=== PATIENT | female | born 1960 | race Caucasian/White ===

== ENCOUNTER → 2016-05-21 | Outpatient (CLI) | payer BC ==
--- NOTE | 2016-05-21 15:47 | US ---
EXAMINATION TYPE: US venous doppler duplex LE LT DATE OF EXAM: 05/21/2016 3:39 PM COMPARISON: No previous CLINICAL HISTORY: Left leg pain and swelling following fall 2 weeks ago. SIDE PERFORMED: Left VESSELS IMAGED: External Iliac Vein (EIV) Common Femoral Vein Deep Femoral Vein Greater Saphenous Vein * Femoral Vein Popliteal Vein Proximal Calf Veins (* superficial vessels) TECHNOLOGIST IMPRESSION: Left Leg: Negative for DVT Satisfactory color flow, phasicity, and compressibility is seen at the above levels in the left lower extremity. IMPRESSION: No ultrasound evidence for acute DVT in the left lower extremity.
== END | disposition home or self-care (01) ==
LOC: RADUSWWP 15:16
PROVIDERS: ATTEND Orthopaedic Surgery
DX: S76.812A Strain of other specified muscles, fascia and tendons at thigh level, left thigh, initial encounter (principal); S76.312D Strain of muscle, fascia and tendon of the posterior muscle group at thigh level, left thigh, subsequent encounter; M79.652 Pain in left thigh

== ENCOUNTER → 2016-08-06 | Outpatient (CLI) | payer BC ==
--- NOTE | 2016-08-06 09:38 | US ---
EXAMINATION TYPE: US venous doppler duplex LE LT DATE OF EXAM: 08/06/2016 9:26 AM COMPARISON: prior llev in pacs--negative CLINICAL HISTORY: LLE Calf Pain,M79.652,S76.312D,I26.99,I80.9. persisting left leg pain, no previous dvt SIDE PERFORMED: left VESSELS IMAGED: External Iliac Vein (EIV) Common Femoral Vein Deep Femoral Vein Greater Saphenous Vein * Femoral Vein Popliteal Vein Small Saphenous Vein * Proximal Calf Veins (* superficial vessels) Left Leg: Negative for DVT Results called to Kathryn in the office at the time of the exam. IMPRESSION: 1. No diagnostic evidence of DVT as visualized.
== END | disposition home or self-care (01) ==
LOC: RADUSWWP 09:07
PROVIDERS: ATTEND Orthopaedic Surgery
DX: I80.9 Phlebitis and thrombophlebitis of unspecified site (principal); I26.99 Other pulmonary embolism without acute cor pulmonale; S76.312D Strain of muscle, fascia and tendon of the posterior muscle group at thigh level, left thigh, subsequent encounter

== ENCOUNTER 2017-04-20 21:52 | Observation (INO) | payer BC ==
[2017-04-20] MEDS ORDERED: NITROGLYCERIN SL TABS 0.4 MG TAB SUBLINGUAL STA (22:08)
[2017-04-20] MEDS ORDERED: ASPIRIN 81 MG PO STA (22:08)
--- NOTE | 2017-04-20 22:13 | ED ---
Chest Pain HPI - General Chief Complaint: Chest Pain Stated Complaint: Chest Pain Time Seen by Provider: 04/20/17 22:01 Source: patient, RN notes reviewed Mode of arrival: wheelchair Limitations: no limitations - History of Present Illness Initial Comments: This is a 56-year-old female with a history of asthma and high triglycerides a former smoker who quit in 1995 who complains the onset last night of somewhat shoulder pain awoke her from sleep. Sharp in pressure-like in nature. She states today she's had intermittent left-sided chest pains as severe as 8/10 currently 1/10 in severity. No fevers chills nausea times sweats cough or other symptoms. Additionally she states she does have a vitamin D deficiency for which she is being treated. No known cardiac disease no known history of early heart disease and her family. MD Complaint: chest pain, other - Related Data Home Medications Medication Instructions Recorded Confirmed Venlafaxine HCl ER [Effexor Xr] 150 mg PO DAILY 08/09/15 04/20/17 Ergocalciferol (Vitamin D2) 50,000 unit PO Q7D 04/20/17 04/20/17 [Vitamin D2] Allergies Allergy/AdvReac Type Severity Reaction Status Date / Time adhesive tape Allergy Rash/Hives Verified 04/20/17 22:00 Milk Containing Products Allergy Anaphylaxis Verified 04/20/17 22:00 [Dairy] Iodine and Iodide Containing AdvReac Rash/Hives Verified 04/20/17 22:00 Produc Review of Systems ROS Statement: Those systems with pertinent positive or pertinent negative responses have been documented in the HPI. ROS Other: All systems not noted in ROS Statement are negative. EKG Findings - EKG Results: EKG: interpreted by YOBANI NDIAYE (Normal sinus rhythm rate of 89. Interval 166 QRS duration 80 QT since QTC of 380/[address]-T wave changes are seen.), sinus rhythm, normal axis, normal QRS, normal ST/T, no acute changes Past Medical History Past Medical History: Asthma, Hyperlipidemia Additional Past Medical History / Comment(s): vertigo History of Any Multi-Drug Resistant Organisms: None Reported Past Surgical History: Breast Surgery, Section, Cholecystectomy, Hysterectomy, Orthopedic Surgery Additional Past Surgical History / Comment(s): Colonoscopy Past Anesthesia/Blood Transfusion Reactions: Motion Sickness, Postoperative Nausea & Vomiting (PONV) Additional Past Anesthesia/Blood Transfusion Reaction / Comment(s): States diff. to wake up Past Psychological History: No Psychological Hx Reported Smoking Status: Former smoker - Past Family History Mother Family Medical History: Cancer General Exam - General Exam Comments Initial Comments: This a well-developed well-nourished awake alert oriented 3 female Limitations: no limitations General appearance: alert, in no apparent distress Head exam: Present: atraumatic, normocephalic, normal inspection Eye exam: Present: normal appearance, PERRL, EOMI. Absent: scleral icterus, conjunctival injection, periorbital swelling ENT exam: Present: normal exam, mucous membranes moist Neck exam: Present: normal inspection. Absent: tenderness, meningismus, lymphadenopathy Respiratory exam: Present: normal lung sounds bilaterally. Absent: respiratory distress, wheezes, rales, rhonchi, stridor, chest wall tenderness Cardiovascular Exam: Present: regular rate, normal rhythm, normal heart sounds. Absent: systolic murmur, diastolic murmur, rubs, gallop, clicks GI/Abdominal exam: Present: soft, normal bowel sounds, other (Obese abdomen). Absent: distended, tenderness, guarding, rebound, rigid, bruit, pulsatile mass, hernia Rectal exam: Present: deferred Extremities exam: Present: normal inspection, full ROM, normal capillary refill. Absent: tenderness, pedal edema, joint swelling, calf tenderness Back exam: Present: normal inspection Neurological exam: Present: alert, oriented X3, CN II-XII intact Psychiatric exam: Present: normal affect, normal mood Skin exam: Present: warm, dry, intact, normal color. Absent: rash Course Vital Signs 04/20/17 04/20/17 21:56 22:40 Temperature 98.0 F Pulse Rate 90 85 Respiratory 20 18 Rate Blood Pressure 178/105 154/89 O2 Sat by Pulse 97 Oximetry - Reevaluation(s) Reevaluation #1: 04/20/17 23:13 Patient did get resolution of her chest pain after nitro it started 5/10 nitroglycerin that essentially disappeared. Chest Pain MDM - MDM I did discuss the findings with the patient and family members the findings are suspicious for angina patient will be admitted I did discuss case with Dr. Marvin x-rays are negative for acute findings patient will be admitted Critical Care Time Critical Care Time: Yes Critical Care Time: 31 minutes of critical care time which includes initial presentation with history physical labs x-rays several reevaluation of the patient discussed with the patient and family regarding findings discussed with the admitting physician initial orders and documentation of the above. Disposition Clinical Impression: Unstable angina pectoris Disposition: ADMITTED IP TO THIS [facility] Condition: Stable Referrals: Jonathan Antoine MD [Primary Care Provider] - 1-2 days
[2017-04-20 22:29] LABS: Basophils % (A) 1 %; CH 31.1; Eosinophils # (A) 0.2 k/uL (0-0.7); Eosinophils % (A) 3 %; HCT 42.9 % (34.0-46.0); HDW 2.46; HGB 14.1 gm/dL (11.4-16.0); Luc # (Auto) 0.11; Luc % (Auto) 2; Lymphocytes % (A) 35 %; MCH 31.1 pg (25.0-35.0); MCHC 32.8 g/dL (31.0-37.0); MCV 94.8 fL (80.0-100.0); Mean Platelet Volume 7.4; Monocytes # (A) 0.4 k/uL (0-1.0); Monocytes % (A) 7 %; Neutrophils # (A) 3.1 k/uL (1.3-7.7); Neutrophils % (A) 54 %; RBC 4.53 m/uL (3.80-5.40); RDW 14.5 % (11.5-15.5); WBC 5.9 k/uL (3.8-10.6); WBC (Perox) 6.32
[2017-04-20 22:46] LABS: ALT 34 U/L (9-52); AST 21 U/L (14-36); Alkaline Phosphatase 81 U/L (38-126); Amylase 73 U/L (30-110); Anion Gap 13 mmol/L; Blood Urea Nitrogen 17 mg/dL (7-17); Calcium 8.9 mg/dL (8.4-10.2); Carbon Dioxide 20 mmol/L (22-30); Chloride 110 mmol/L (98-107); Glucose 109 mg/dL (74-99); Magnesium 2.2 mg/dL (1.6-2.3); Non-African American GFR(MDRD) >60 (>60 ml/min/1.73 sqM); Potassium 4.2 mmol/L (3.5-5.1); Sodium 143 mmol/L (137-145); Total Bilirubin 0.5 mg/dL (0.2-1.3); Total Protein 7.2 g/dL (6.3-8.2)
[2017-04-20 22:56] LABS: Creatine Kinase 117 U/L (30-135)
--- NOTE | 2017-04-20 23:02 | XR ---
EXAMINATION TYPE: XR chest 2V DATE OF EXAM: 04/20/2017 COMPARISON: NONE HISTORY: Chest pain TECHNIQUE: Frontal and lateral views of the chest are obtained. FINDINGS: Heart and mediastinum are normal. Lungs are clear. Diaphragm is normal. Bony thorax is int act. IMPRESSION: Normal chest
[2017-04-20 23:10] LABS: Creatine Kinase MB 0.5 ng/mL (0.0-2.4); Troponin I <0.012 ng/mL (0.000-0.034)
[2017-04-20] MEDS ORDERED: NITROGLYCERIN SL TABS 0.4 MG TAB SUBLINGUAL PRN (23:15)
[2017-04-20] MEDS ORDERED: HEPARIN SOD,PORK IN 0.45% NACL 25,000 UNIT in 0.45% NACL 1 500ML.BAG IV SCH (23:15)
[2017-04-20] MEDS ORDERED: HEPARIN SODIUM,PORCINE 5,000 UNIT/ML 1 ML VIAL IV ONE (23:15)
[2017-04-20] MEDS ORDERED: SODIUM CHLORIDE 0.9% 1,000 ML IV SCH (23:15)
[2017-04-20 23:17] LABS: Prothrombin Time 9.8 sec (9.0-12.0)
[2017-04-21 00:29] VITALS: BMI 36.6
[2017-04-21] MEDS: NITROGLYCERIN OINT 1 INCH/GM PACKET TOPICAL SCH ×3 (00:57→14:53)
[2017-04-21 04:42] LABS: Cholesterol 176 mg/dL (<200); Creatine Kinase 83 U/L (30-135); HDL Cholesterol 43 mg/dL (40-60)
[2017-04-21 04:56] LABS: Creatine Kinase MB 0.5 ng/mL (0.0-2.4); Troponin I <0.012 ng/mL (0.000-0.034)
[2017-04-21 06:58] VITALS: RESP 16
[2017-04-21] MEDS ORDERED: amLODIPine 2.5 MG TAB PO STA (08:17)
[2017-04-21] MEDS ORDERED: ASPIRIN 325 MG TAB PO SCH (09:00)
[2017-04-21] MEDS ORDERED: VENLAFAXINE HCL ER 150 MG CAP PO SCH ×2 (09:00→10:01)
[2017-04-21 10:35] LABS: Creatine Kinase 99 U/L (30-135)
[2017-04-21 10:48] LABS: Creatine Kinase MB 0.6 ng/mL (0.0-2.4); Troponin I <0.012 ng/mL (0.000-0.034)
--- NOTE | 2017-04-21 11:11 | ECHOF ---
Referral Reason:cp MEASUREMENTS -------- HEIGHT: 165.1 cm WEIGHT: 105.2 kg BP: 130/65 IVSd: 1.2 cm (0.6 - 1.1) LVIDd: 3.4 cm (3.9 - 5.3) LVPWd: 1.1 cm (0.6 - 1.1) IVSs: 1.3 cm LVIDs: 2.5 cm LVPWs: 1.8 cm Ao Diam: 3.0 cm (2.0 - 3.7) AV Cusp: 2.2 cm (1.5 - 2.6) LA Diam: 3.3 cm (2.7 - 3.8) MV EXCURSION: 12.495 mm (> 18.000) MV EF SLOPE: 88 mm/s (70 - 150) EPSS: 0.5 cm MV E Miguel Ángel: 0.82 m/s MV DecT: 222 ms MV A Miguel Ángel: 0.87 m/s MV E/A Ratio: 0.93 RAP: 5.00 mmHg RVSP: 9.35 mmHg FINDINGS -------- Sinus rhythm. This was a technically good study. The left ventricular size is normal. There is mild concentric left ventricular hypertrophy. Overa ll left ventricular systolic function is normal with, an EF between 55 - 60 %. The right ventricle is normal in size and function. The left atrium is normal in size. The right atrium is normal in size. The aortic valve is trileaflet, and appears structurally normal. No aortic stenosis or regurgitation. Mild mitral regurgitation is present. Mild tricuspid regurgitation present. The right ventricular systolic pressure, as measured by Doppl er, is 9.35mmHg. Pulmonic valve appears structurally normal. The aortic root size is normal. The pericardium is normal. CONCLUSIONS -------- 1. Sinus rhythm. 2. This was a technically good study. 3. The left ventricular size is normal. 4. There is mild concentric left ventricular hypertrophy. 5. Overall left ventricular systolic function is normal with, an EF between 55 - 60 %. 6. The right ventricle is normal in size and function. 7. The left atrium is normal in size. 8. The right atrium is normal in size. 9. The aortic valve is trileaflet, and appears structurally normal. No aortic stenosis or regurgitati on. 10. Mild mitral regurgitation is present. 11. Mild tricuspid regurgitation present. 12. The right ventricular systolic pressure, as measured by Doppler, is 9.35mmHg. 13. Pulmonic valve appears structurally normal. 14. The aortic root size is normal. 15. The pericardium is normal. SNUBBER: Mamta Mortensen RDCS
--- NOTE | 2017-04-21 11:15 | ECHOS ---
STRESS ECHOCARDIOGRAM DATE OF SERVICE: 04/21/2017. INDICATIONS: Evaluate for CAD in a patient with atypical chest pain. MEDICATIONS: Venlafaxine, ergocalciferol. BASELINE HEART RATE: 81 BASELINE BLOOD PRESSURE: 130/65 MAXIMUM HEART RATE: 140 MAXIMUM BLOOD PRESSURE: 172/78 85% MPHR: 138 100% MPHR: 162 METS: 8.5 MAXIMUM STAGE REACHED: 3 TOTAL EXERCISE TIME: 7:00 CLINICAL INFORMATION: Baseline EKG revealed a normal sinus rhythm with somewhat poor R-wave progression over precordial leads. Patient walked on a standard Eros protocol for 7 minutes, achieved a maximum heart rate of 140 beats per minute. Developed nausea towards the ending. She did not have any anginal symptoms. EKG did not reveal any ST-segment changes to indicate ischemia. Rare PVCs were noted. By EKG criteria, this is a negative stress test with fair exercise capacity. Baseline echo images revealed normal wall motion, wall thickening of all segments. At peak exercise, there was good augmentation of left ventricular wall motion and wall thickening of all segments suggesting that there was no evidence of stress-induced ischemia on this study. FINAL IMPRESSION: 1. By EKG, this is negative stress test with fair exercise capacity. 2. Normal stress echocardiogram. MMODL / IJN: [id number] /
--- NOTE | 2017-04-21 11:39 | CONS ---
CONSULTATION This is a 56-year-old lady who is a reasonably active person. Yesterday, she went to some kind of a vendor show and lifted a few objects, but she did not really do much heavy lifting. She had some left shoulder discomfort. The quality of the pain seemed very musculoskeletal, then she came home and had some sharp pains in the chest and an achy feeling across her upper chest and then came into the hospital. The quality of pain is quite atypical. Her EKG is normal. Her troponins are normal. She is resting comfortably without symptoms. PAST MEDICAL HISTORY: 1. Includes borderline hypertension for which she is not on any medications. 2. Depression. MEDICATIONS: At home include Effexor and vitamin D supplements. ALLERGIES: There is a question of IODINE allergy. CORONARY RISK FACTORS: She has a questionable family history of CAD, borderline hypertension. Cholesterol status is unknown. Her primary care physician is Dr. Antoine. VITAL SIGNS: On examination, the blood pressure is about 132/74, pulse rate is about 70 per minute, regular. HEENT: Unremarkable. Fundus was not examined by me. Neck is supple. No JVD. I do not hear a carotid bruit. There is no thyromegaly. Heart exam reveals S1, S2 heard normally without a rub, murmur or gallop. Lungs are clear. Abdomen is soft, nontender. Lower extremities reveal normal pulses, no edema. Central nervous system is normal. IMPRESSION: 1. Atypical chest pain with normal troponins and unremarkable EKG. 2. Borderline hypertension. Patient apparently was hypertensive when she came in, but she is normotensive now. Pain and anxiety could have been a factor. RECOMMENDATIONS: I am recommending echocardiogram, a stress echo and if these are normal, she can be discharged and follow up with Dr. Antoine. If the tests are abnormal, I will consider intervention. Discussed my thoughts in detail with the patient as well as her daughter. MMODL / IJN: [id number] /
[2017-04-21 12:02] VITALS: BP 107/69; PULSE 74; TEMP 98.1
--- NOTE | 2017-04-21 14:21 | HP ---
HISTORY AND PHYSICAL DATE OF ADMISSION: 04/20/2017. PRESENTING COMPLAINT: Left chest pain. HISTORY OF PRESENTING COMPLAINT: A pleasant 56-year-old patient of Dr. Antoine. Chronic stable medical conditions include asthma, hyperlipidemia, depression. Friday evening patient developed some left shoulder pain and it went down to the adjoining left anterior chest wall. It was a sharp pain. No dizziness. No lightheadedness. Shortness of breath and present on and off, more so with movement. No leg swelling. No perspiration. Patient does live heavy tubs anyway from 20 to 30 pounds and moves them around and she thought she may have jerked her arm/shoulder. Because of the chest pain, she was being admitted to rule out a cardiac cause. Patient is otherwise rather active with no prior cardiac history and got very good exercise tolerance. REVIEW OF SYSTEMS: CONSTITUTIONAL: None. HEENT: None. RESPIRATORY: None. CARDIOVASCULAR: No precordial pain. GASTROINTESTINAL: None. GENITOURINARY: None. MUSCULOSKELETAL: As above. DERMATOLOGICAL: None. HEMATOLOGIC: None. LYMPHATIC: None. PSYCHIATRY: Depression, controlled. NEUROLOGICAL: None. PAST HISTORY: Asthma, hyperlipidemia, depression, vertigo. PAST SURGICAL HISTORY: Breast surgery, , cholecystectomy, hysterectomy due to precancer cells, breast reduction, right torn meniscus. SOCIAL HISTORY: Lives by herself, does smoke in the past. 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 HOME MEDICATIONS: 1. Effexor XR 150 mg a day. 2. Vitamin D2 fifty thousand units every 7 days. ALLERGIES: To ADHESIVES, MILK-CONTAINING PRODUCTS, IODINE PHYSICAL EXAMINATION: Vital signs on presentation, temperature 98, pulse 90, respiration 20, blood pressure 130/105, pulse ox 97% on room air. Repeat blood pressure down to 140/72. GENERAL APPEARANCE: Well built, BMI 30.6. Lying in bed. EYES: Pupils equal, conjunctivae normal. HEENT: Oral cavity normal. NECK: JVD not raised. Mass not palpable. RESPIRATORY: Effort normal. Lungs are clear. CARDIOVASCULAR: First and second sounds are normal. No edema. ABDOMEN: Soft, nontender. Liver and spleen not palpable. LYMPHATIC: No lymph nodes palpable in neck or axillae. PSYCHIATRY: Alert and oriented x3. Mood and affect normal. NEUROLOGICAL: Pupils equal, cranial nerves grossly intact. Power and sensation grossly intact. MUSCULOSKELETAL: Mild tenderness around the left shoulder area. INVESTIGATIONS: White count 5.9, hemoglobin 14.1, potassium 4.2. BUN and creatinine are normal. Troponin x3 negative. LDL 79. EKG normal sinus rhythm. ASSESSMENT: 1. Left anterior chest wall pain, likely referred pain from the left shoulder after lifting heavy product, likely musculoskeletal pain. Rule out a cardiac cause. 2. Intermittent asthma, stable. 3. Hyperlipidemia. 4. Depression, not otherwise specified. 5. Obesity. body mass index of 38.6. PLAN: Serial cardiac enzymes done that were negative. Cardiology was consulted who ordered a stress echocardiogram. I saw the patient earlier today. Care was discussed with the patient. I told to use some local heat pad. COCO / KADENN: [id number] /
--- NOTE | 2017-04-21 14:25 | DS ---
DISCHARGE SUMMARY DATE OF ADMISSION: 04/20/2017. DATE IF DISCHARGE: 04/21/2017. FINAL DIAGNOSES: 1. Left anterior chest wall pain, referred pain from left shoulder, likely musculoskeletal. 2. Obesity, body mass index 38.6. 3. Intermittent asthma. 4. Hyperlipidemia. 5. Depression, otherwise specified, controlled. 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 Patient's troponins are negative. Did undergo stress echocardiogram that came back to be negative. A 2D echocardiogram showed preserved LV function. No wall motion abnormality. On examination, mild tenderness in the left shoulder area. Lungs are clear. CONSULTATION: Dr. Gunjan Lan from Cardiology. DISCHARGE MEDICATIONS: 1. Effexor XR 150 mg a day. 2. Vitamin D2 fifty thousand units every 7 days. 3. Naproxen 250 mg p.o. b.i.d. for 10 tablets. Follow up with Dr. Antoine in 3 days. The patient should follow up with dietitian outpatient for weight loss measures. MMODL / IJN: [id number] /
== END 2017-04-21 14:54 | disposition home or self-care (01) ==
LOC: EC 21:52 → 3OBS 23:15
PROVIDERS: ADMIT Hospitalist; ATTEND Hospitalist
DX: R07.89 Other chest pain (principal); M25.512 Pain in left shoulder; R06.02 Shortness of breath; E66.9 Obesity, unspecified; Z68.38 Body mass index [BMI] 38.0-38.9, adult; R03.0 Elevated blood-pressure reading, without diagnosis of hypertension; J45.20 Mild intermittent asthma, uncomplicated; E78.5 Hyperlipidemia, unspecified; F32.9 Major depressive disorder, single episode, unspecified; Z87.891 Personal history of nicotine dependence; E55.9 Vitamin D deficiency, unspecified; Z79.899 Other long term (current) drug therapy; Z91.011 Allergy to milk products; Z91.048 Other nonmedicinal substance allergy status; X50.0XXA Overexertion from strenuous movement or load, initial encounter
CPT/HCPCS: 99291; 96376 ×2; 96365 ×2; 96366; 36415; 93017; 93306; 93350; 85379; 83880; 80061; 80053; 82150; 82550 ×2; 82553 ×2; 83690; 83735; 84484 ×2; 85025; 85610; 85730 ×2; 71020; G0378 ×2; J1644 ×2; 93005

== ENCOUNTER → 2019-04-02 | Outpatient (CLI) | payer OTHER ==
[2019-04-02 07:03] LABS: Basophils % (A) 0 %; Eosinophils # (A) 0.1 k/uL (0-0.7); Eosinophils % (A) 2 %; HCT 43.5 % (34.0-46.0); HGB 14.6 gm/dL (11.4-16.0); Lymphocytes # (A) 1.4 k/uL (1.0-4.8); Lymphocytes % (A) 22 %; MCH 32.1 pg (25.0-35.0); MCHC 33.4 g/dL (31.0-37.0); MCV 96.2 fL (80.0-100.0); Mean Platelet Volume 6.1; Monocytes # (A) 0.4 k/uL (0-1.0); Monocytes % (A) 6 %; Neutrophils # (A) 4.3 k/uL (1.3-7.7); Neutrophils % (A) 68 %; Platelet Count 270 k/uL (150-450); RBC 4.53 m/uL (3.80-5.40); WBC 6.3 k/uL (3.8-10.6)
[2019-04-02 07:14] LABS: Appearance,Urine Cloudy (Clear); Bacteria,Urine Occasional /hpf; Bilirubin,Urine Negative (Negative); Blood,Urine Negative (Negative); Color,Urine Yellow; Glucose,Urine (UA) Negative (Negative); Ketones,Urine Negative (Negative); Leukocyte Esterase,Urine Negative (Negative); Mucus,Urine Occasional /hpf; Nitrite,Urine Negative (Negative); Protein,Urine Negative (Negative); RBC,Urine <1 /hpf (0-5); Specific Gravity,Urine 1.021 (1.001-1.035); Squamous Epithelial Cell,Urine 4 /hpf (0-4); Urobilinogen,Urine <2.0 mg/dL (<2.0); WBC,Urine 1 /hpf (0-5)
[2019-04-02 10:33] LABS: Erythrocyte Sedimentation Rate 13 mm/hr (0-20)
[2019-04-02 12:14] LABS: African American GFR (CKD) 92.9 (60.0-200.0); Albumin 4.3 g/dL (3.80-4.90); Albumin/Globulin Ratio 1.95 (1.60-3.17); Calcium 8.9 mg/dL (8.7-10.3); Chol/HDL Ratio 4.35; Globulin 2.2 g/dL (1.6-3.3); LDL Cholesterol,Calculated 104.6 mg/dL (0.0-131.0); Non-African American GFR(CKD) 80.1 (60.0-200.0); Potassium 4.4 mmol/L (3.5-5.5); Total Bilirubin 0.5 mg/dL (0.2-1.2); Total Protein 6.5 g/dL (6.2-8.2); VLDL Calculation 49.4 mg/dL (5.00-40.00)
[2019-04-02 12:22] LABS: T4, Free (Free Thyroxine) 1.2 ng/dL (0.80-1.80)
== END | disposition home or self-care (01) ==
LOC: LABWHC1 06:36
PROVIDERS: ATTEND Internal Medicine
DX: E78.5 Hyperlipidemia, unspecified (principal); I10 Essential (primary) hypertension; E11.9 Type 2 diabetes mellitus without complications; R10.11 Right upper quadrant pain
CPT/HCPCS: 36415; 80053; 80061; 81001; 82150; 82306; 83036; 83690; 84439; 84443; 85025; 85652

== ENCOUNTER → 2019-04-16 | Outpatient (CLI) | payer OTHER ==
--- NOTE | 2019-04-16 11:06 | CT ---
EXAMINATION TYPE: CT abdomen pelvis w con DATE OF EXAM: 04/16/2019 HISTORY: LUQ pain CT DLP: 1990.80mGycm Automated Exposure Control for Dose Reduction was Utilized. CONTRAST: CT scan of the abdomen and pelvis is performed with IV Contrast, patient injected with 100 ml mL of I sovue 300. COMPARISON: Gallbladder ultrasound August 26, 2014 FINDINGS: LUNG BASES: No significant abnormality is appreciated. LIVER/GB: Liver is heterogeneously hypodense consistent with diffuse fatty infiltration as was presen t on 2014 ultrasound. Interval cholecystectomy with cholecystectomy clips.. PANCREAS: No significant abnormality is seen. SPLEEN: No significant abnormality is seen. ADRENALS: There is 3.1 x 2.3 cm oval low dense left adrenal mass by 4.0 cm craniocaudal dimension wit h rim calcification. Hounsfield units average between 10-20. Suspect hematoma related to old trauma o r benign cystic etiology. KIDNEYS: There are simple appearing 3.6 cm thin-walled cyst posteriorly mid to lower pole of the left kidney image 39 series 5. Symmetric or medullary uptake and excretion is seen without hydronephrosis bilaterally. BOWEL: Oral contrast reaches the rectum. No suspicious small or large bowel dilatation mild wall thic kening of several levels in the colon particularly transverse and distal left into entire sigmoid col on. Correlate for possible mild colitis. No suspicious small or large bowel dilatation. Normal-appear ing appendix seen best near axial image 53. UTERUS/ADNEXA: Uterus is surgically absent or markedly atrophic. LYMPH NODES: No greater than 1cm abdominal or pelvic lymph nodes are appreciated. OSSEOUS STRUCTURES: Moderate narrowing and mild spurring of both hip joints. Some facet arthropathy i n the lower lumbar spine. OTHER: No significant additional abnormality is seen. IMPRESSION: Possible mild mid to distal colitis. Correlate clinically for acute infectious or inflamm atory process. Otherwise no new or acute findings seen to account for patient's symptoms.
== END | disposition home or self-care (01) ==
LOC: RADCTMAIN 08:53
PROVIDERS: ATTEND Internal Medicine
DX: R10.12 Left upper quadrant pain (principal); Z88.2 Allergy status to sulfonamides; Z88.1 Allergy status to other antibiotic agents; Z91.048 Other nonmedicinal substance allergy status
CPT/HCPCS: 74177; Q9967

== ENCOUNTER → 2020-10-05 | Outpatient (CLI) | payer OTHER ==
--- NOTE | 2020-10-05 12:42 | US ---
EXAMINATION TYPE: US venous doppler duplex LE LT DATE OF EXAM: 10/05/2020 12:29 PM COMPARISON: US 201608/06/2016 CLINICAL HISTORY: I80.9 Phlebitis and thrombophlebitis. Left heel pain x couple months SIDE PERFORMED: Left TECHNIQUE: The lower extremity deep venous system is examined utilizing real time linear array sonog alisa with graded compression, doppler sonography and color-flow sonography. VESSELS IMAGED: Common Femoral Vein Deep Femoral Vein Greater Saphenous Vein * Femoral Vein Popliteal Vein Small Saphenous Vein * Proximal Calf Veins (* superficial vessels) Left Leg: Appears negative for DVT IMPRESSION: 1. No evidence of deep venous thrombosis in the left lower extremity veins.
== END | disposition home or self-care (01) ==
LOC: RADUSWWP 12:09
PROVIDERS: ATTEND Orthopaedic Surgery
DX: I80.9 Phlebitis and thrombophlebitis of unspecified site (principal)

== ENCOUNTER → 2021-12-10 | Outpatient (CLI) | payer BC ==
--- NOTE | 2021-12-10 16:21 | CT ---
EXAMINATION TYPE: CT adrenal glands wo/w con DATE OF EXAM: 12/10/2021 HISTORY: Adrenal cortical adenoma CT DLP: 2660.1mGycm Automated Exposure Control for Dose Reduction was Utilized. CONTRAST: CT scan of the abdomen is performed with oral andr without and with IV Contrast, patient injected wit h 100 mL of Isovue 300. Adrenal gland protocol. COMPARISON: Prior CT abdomen and pelvis April 16, 2019 FINDINGS: LUNG BASES: No significant abnormality is appreciated. LIVER/GB: Liver is diffusely low dense relative to spleen on noncontrast images consistent with diffu se fatty infiltration. Cholecystectomy clips are redemonstrated. PANCREAS: No significant abnormality is seen. SPLEEN: No significant abnormality is seen. ADRENALS: Persistent thin rim calcified left adrenal low dense lesion or mass measuring 3.5 x 2.3 cm axial series 3 image 24 unchanged in size from prior study. Hounsfield units average 11 tip, noncontr ast images with enhancement up to near 15 on 1 minute postcontrast images and Hounsfield around 14 on the delayed 15 minute postcontrast images. Right adrenal gland remains normal in size KIDNEYS: Partially exophytic simple appearing 4.9 cm cyst posteriorly midpole level left kidney redem onstrated. BOWEL: Incidental normal-appearing appendix from base of cecum. LYMPH NODES: No greater than 1cm abdominal lymph nodes are appreciated. OSSEOUS STRUCTURES: Slight grade 1 anterolisthesis L3 on L4. OTHER: No significant additional abnormality is seen. IMPRESSION: Oval thin-walled left adrenal mass has nonspecific findings on dynamic postcontrast imagi ng but stability in size and overall low density strongly favors benign etiology.
== END | disposition home or self-care (01) ==
LOC: RADCTMAIN 15:16
PROVIDERS: ATTEND Internal Medicine Endocrinology, Diabetes & Metabolism
DX: D35.02 Benign neoplasm of left adrenal gland (principal)
CPT/HCPCS: 74170; Q9967

== ENCOUNTER → 2021-12-25 | Outpatient (CLI) | payer BC ==
[2021-12-25 11:49] LABS: Albumin 3.9 g/dL (3.8-4.9); Albumin/Globulin Ratio 1.56 (1.60-3.17); Anion Gap 10.6 mmol/L (10.00-18.00); BUN/Creat Ratio 16.2 Ratio (12.00-20.00); Blood Urea Nitrogen 11.6 mg/dL (9.0-27.0); Carbon Dioxide 22.9 mmol/L (20.0-27.5); Globulin 2.5 g/dL (1.6-3.3); Non-African American GFR(CKD) 89.7 (60.0-200.0); Potassium 4.3 mmol/L (3.5-5.5); Total Bilirubin 0.3 mg/dL (0.30-1.20); Total Protein 6.3 g/dL (6.2-8.2)
== END | disposition home or self-care (01) ==
LOC: LABWHC1 07:06
PROVIDERS: ATTEND Internal Medicine Endocrinology, Diabetes & Metabolism
DX: D35.00 Benign neoplasm of unspecified adrenal gland (principal)
CPT/HCPCS: 36415; 80053; 82088; 82533; 83835; 84244

== ENCOUNTER → 2022-04-18 | Outpatient (CLI) | payer BC ==
--- NOTE | 2022-04-18 10:58 | MM ---
Reason for Exam: Clinical finding. Last mammogram was performed 7 year(s) and 9 month(s) ago. Indicated Problems: Pain of the left side (Focal) for 3 Month(s). Patient History: Menarche at age 13. First Full-Term at age 25. Left ovary removed at age 45. Right ovary removed at age 45. Hysterectomy at age 45. Postmenopausal. 09/2012, Reduction. Risk Values: Claudia 5 year model risk: 1.6%. NCI Lifetime model risk: 6.8%. Prior Study Comparison: 09/02/2006 Right Diagnostic Mammogram, [facility]. 01/06/2008 Bilateral Screening Mammogram, [facility]. 02/05/2011 Bilateral Screening Mammogram, [facility]. 07/12/2014 Bilateral Screening Mammogram, [facility]. Tissue Density: The breast tissue is almost entirely fat. Findings: Analyzed By CAD. Post surgical change of reduction mammoplasty on both sides. Benign analysis calcification medial left breast redemonstrated. No significant change from prior exams. Overall Assessment: Benign, BI-RAD 2 Management: Screening Mammogram of both breasts in 1 year. 1. Patient should continue monthly self breast exams. 2. A clinical breast exam by your physician is recommended on an annual basis. 3. This exam should not preclude additional follow-up of suspicious palpable abnormalities. Results were given to the patient verbally at the time of exam. Electronically signed and approved by: Jackelyn Baker M.D. Radiologist
== END | disposition home or self-care (01) ==
LOC: RADMAMWWP 09:57
PROVIDERS: ATTEND Obstetrics & Gynecology
DX: N64.4 Mastodynia (principal); Z78.0 Asymptomatic menopausal state
CPT/HCPCS: 77062; 77066

== ENCOUNTER → 2022-07-25 | Outpatient (CLI) | payer BC ==
--- NOTE | 2022-07-25 14:23 | CT ---
EXAMINATION TYPE: CT adrenal glands wo/w con DATE OF EXAM: 07/25/2022 HISTORY: follow up adrenal CT DLP: 2033mGycm Automated Exposure Control for Dose Reduction was Utilized. CONTRAST: CT scan of the abdomen is performed with oral and without and with IV Contrast, patient injected with 100 mL of Isovue 300. Adrenal gland protocol. COMPARISON: Prior CT December 10, 2021 and older study 2018 FINDINGS: LUNG BASES: No significant abnormality is appreciated. LIVER/GB: Liver remains diffusely low dense relative to spleen on noncontrast images consistent with diffuse fatty infiltration. Cholecystectomy clips are redemonstrated. PANCREAS: No significant abnormality is seen. SPLEEN: No significant abnormality is seen. ADRENALS: Persistent thin rim calcified left adrenal low dense lesion or mass measuring 3.5 x 2.4 cm axial series 3 image 23 unchanged in size and appearance from prior study. Hounsfield units average 4 on noncontrast images and measure 8 on 1 minute postcontrast images and Hounsfield around 4 on the d elayed 15 minute postcontrast images. Right adrenal gland remains normal in size. KIDNEYS: Partially exophytic simple appearing 4.7cm cyst posteriorly midpole level left kidney redemo nstrated axial image 35 series 6. BOWEL: Oral contrast does not reach colonic level. No suspicious small or large bowel dilatation. Nor mal-appearing appendix is redemonstrated LYMPH NODES: No new greater than 1cm abdominal lymph nodes are appreciated. OSSEOUS STRUCTURES: Slight grade 1 anterolisthesis L3 on L4 is redemonstrated. OTHER: No significant additional abnormality is seen. IMPRESSION: Oval thin calcified wall left adrenal mass is stable in size and overall low density stro ngly favors benign etiology. No significant change from prior CT.
== END | disposition home or self-care (01) ==
LOC: RADCTMAIN 12:59
PROVIDERS: ATTEND Internal Medicine Endocrinology, Diabetes & Metabolism
DX: D35.02 Benign neoplasm of left adrenal gland (principal)
CPT/HCPCS: 74170; Q9967

== ENCOUNTER → 2022-08-22 | Outpatient (CLI) | payer BC ==
[2022-08-23 06:01] LABS: Dog Dander IgE <0.10 kU/L
[2022-08-23 06:04] LABS: Alternaria alternata IgE <0.10 kU/L; Birch IgE <0.10 kU/L; Cat Epith & Dander IgE <0.10 kU/L; Dermato. farinae IgE <0.10 kU/L; Elm IgE <0.10 kU/L; Maple (Box Elder) IgE <0.10 kU/L; Oak IgE <0.10 kU/L; Ragweed,Common IgE <0.10 kU/L
[2022-08-23 06:10] LABS: Aspergillus fumagatus IgE <0.10 kU/L; Cladosporian herbarum IgE <0.10 kU/L; Red Top (Bentgrass) IgE 0.96 kU/L
== END | disposition home or self-care (01) ==
LOC: LABWHC1 16:04
PROVIDERS: ATTEND Internal Medicine
DX: J45.50 Severe persistent asthma, uncomplicated (principal); Z86.59 Personal history of other mental and behavioral disorders
CPT/HCPCS: 36415; 82785; 85008; 86003

== ENCOUNTER → 2022-09-05 | Outpatient (CLI) | payer BC ==
[2022-09-05 20:43] LABS: African American GFR (CKD) 92.4 (60.0-200.0); Albumin 3.9 g/dL (3.8-4.9); Albumin/Globulin Ratio 1.59 (1.60-3.17); Anion Gap 9.8 mmol/L (10.00-18.00); BUN/Creat Ratio 20.13 Ratio (12.00-20.00); Blood Urea Nitrogen 15.8 mg/dL (9.0-27.0); Calcium 9.2 mg/dL (8.7-10.3); Carbon Dioxide 24.4 mmol/L (20.0-27.5); Globulin 2.5 g/dL (1.6-3.3); Non-African American GFR(CKD) 79.7 (60.0-200.0); Potassium 4.5 mmol/L (3.5-5.5); Total Bilirubin 0.4 mg/dL (0.30-1.20); Total Protein 6.4 g/dL (6.2-8.2)
== END | disposition home or self-care (01) ==
LOC: LABWHC1 08:09
PROVIDERS: ATTEND Internal Medicine Endocrinology, Diabetes & Metabolism
DX: D35.00 Benign neoplasm of unspecified adrenal gland (principal)
CPT/HCPCS: 36415; 80053; 82024; 82088; 82533; 84244

== ENCOUNTER → 2023-07-31 | Outpatient (CLI) | payer MEDICARE ==
[2023-07-31 16:21] LABS: ALT 23 U/L (8-44); AST 17 U/L (13-35); Albumin 4.2 g/dL (3.8-4.9); Albumin/Globulin Ratio 1.68 Ratio (1.60-3.17); Alkaline Phosphatase 77 U/L (41-126); BUN/Creat Ratio 20.29 Ratio (12.00-20.00); Blood Urea Nitrogen 14.2 mg/dL (9.0-27.0); Calcium 9.4 mg/dL (8.7-10.3); Carbon Dioxide 24.3 mmol/L (21.6-31.8); Chloride 110 mmol/L (96-109); Globulin 2.5 g/dL (1.6-3.3); Glucose 122 mg/dL (70-110); Potassium 4.3 mmol/L (3.5-5.5); Sodium 145 mmol/L (135-145); Total Bilirubin 0.5 mg/dL (0.3-1.2); Total Protein 6.7 g/dL (6.2-8.2)
== END | disposition home or self-care (01) ==
LOC: LABWHC1 09:41
PROVIDERS: ATTEND Internal Medicine Endocrinology, Diabetes & Metabolism
DX: D35.00 Benign neoplasm of unspecified adrenal gland (principal)
CPT/HCPCS: 36415; 80053; 82024; 82533

== ENCOUNTER → 2023-08-19 | Outpatient (CLI) | payer MEDICARE | LOC: RADCTMAIN 06:52 | PROVIDERS: ATTEND Internal Medicine Endocrinology, Diabetes & Metabolism | DX: Z53.9 Procedure and treatment not carried out, unspecified reason (principal) ==

== ENCOUNTER → 2023-08-19 | Outpatient (CLI) | payer MEDICARE ==
[2023-08-19 11:14] LABS: ALT 22 U/L (8-44); AST 16 U/L (13-35); Albumin 4.1 g/dL (3.8-4.9); Albumin/Globulin Ratio 1.52 Ratio (1.60-3.17); Alkaline Phosphatase 78 U/L (41-126); BUN/Creat Ratio 22.71 Ratio (12.00-20.00); Blood Urea Nitrogen 15.9 mg/dL (9.0-27.0); Calcium 9.1 mg/dL (8.7-10.3); Carbon Dioxide 24.5 mmol/L (21.6-31.8); Chloride 104 mmol/L (96-109); Globulin 2.7 g/dL (1.6-3.3); Glucose 137 mg/dL (70-110); Potassium 4.3 mmol/L (3.5-5.5); Sodium 139 mmol/L (135-145); Total Bilirubin 0.6 mg/dL (0.3-1.2); Total Protein 6.8 g/dL (6.2-8.2)
== END | disposition home or self-care (01) ==
LOC: LABWHC1 07:26
PROVIDERS: ATTEND Internal Medicine Endocrinology, Diabetes & Metabolism
DX: D35.00 Benign neoplasm of unspecified adrenal gland (principal)
CPT/HCPCS: 36415; 80053; 82024; 82088; 82533; 83835; 84244

== ENCOUNTER → 2023-08-22 | Outpatient (CLI) | payer MEDICARE ==
--- NOTE | 2023-08-22 09:25 | CT ---
EXAMINATION TYPE: CT adrenal glands wo/w con DATE OF EXAM: 08/22/2023 COMPARISON: 07/25/2022 04/16/2019 HISTORY: adrenal mass found on outside MRI. prior CT on PACS CT DLP: 2103 mGycm Automated exposure control for dose reduction was used. CONTRAST: Performed without and with IV Contrast, patient injected with 100ml mL of Isovue 300. FINDINGS: There is a left adrenal mass a peripheral rim of calcium in. Measures 3 cm and stable in size. Its si ze is unchanged from 2019. The lesion measures 2 Hounsfield units. Lesion measures 6 Hounsfield units on 1 minute images and and report Hounsfield units on 15 minute image. Hounsfield units on precontrast. Absolute washout of 50%. Relative washout of 14.3%. These findings are indeterminate. Right adrenal gland has a normal appearance. There is diffuse hypoattenuation within the liver compatible with hepatic steatosis. Lung bases are c lear. No hydronephrosis or nephrolithiasis. Simple-appearing Bosniak classification 1 left renal cyst. Mild atherosclerotic change of the aorta. No pathologic adenopathy. Pancreas has a normal appearance. Spl een has a normal appearance. Visualized bowel demonstrates no evidence of obstruction. Normal-appeari ng appendix. IMPRESSION: 1. LEFT ADRENAL GLAND MEASURES UP TO 50% ABSOLUTE WASHOUT WHICH IS INDETERMINATE. HOWEVER, THE LESION IS STABLE IN SIZE FROM 2019 AND THEREFORE LIKELY IS BENIGN 2. HEPATIC STEATOSIS.
== END | disposition home or self-care (01) ==
LOC: RADCTMAIN 07:17
PROVIDERS: ATTEND Internal Medicine Endocrinology, Diabetes & Metabolism
DX: E27.8 Other specified disorders of adrenal gland (principal); D35.00 Benign neoplasm of unspecified adrenal gland; K76.0 Fatty (change of) liver, not elsewhere classified
CPT/HCPCS: 74170; Q9967

== ENCOUNTER → 2023-09-12 | Outpatient (CLI) | payer MEDICARE ==
[2023-09-12 10:40] LABS: ALT 20 U/L (8-44); AST 17 U/L (13-35); Albumin 4.3 g/dL (3.8-4.9); Albumin/Globulin Ratio 1.72 Ratio (1.60-3.17); Alkaline Phosphatase 82 U/L (41-126); BUN/Creat Ratio 21.71 Ratio (12.00-20.00); Blood Urea Nitrogen 15.2 mg/dL (9.0-27.0); Calcium 9.2 mg/dL (8.7-10.3); Carbon Dioxide 20.1 mmol/L (21.6-31.8); Chloride 107 mmol/L (96-109); Globulin 2.5 g/dL (1.6-3.3); Glucose 161 mg/dL (70-110); Potassium 4.5 mmol/L (3.5-5.5); Sodium 140 mmol/L (135-145); Total Bilirubin 0.5 mg/dL (0.3-1.2); Total Protein 6.8 g/dL (6.2-8.2)
== END | disposition home or self-care (01) ==
LOC: LABWHC1 07:06
PROVIDERS: ATTEND Internal Medicine Endocrinology, Diabetes & Metabolism
DX: E27.8 Other specified disorders of adrenal gland (principal)
CPT/HCPCS: 36415; 80053; 82024; 82533

== ENCOUNTER → 2024-03-10 | Outpatient (CLI) | payer MEDICARE ==
[2024-03-10 23:25] LABS: ALT 26 U/L (8-44); AST 19 U/L (13-35); Albumin 4.2 g/dL (3.8-4.9); Alkaline Phosphatase 81 U/L (41-126); Blood Urea Nitrogen 19.2 mg/dL (9.0-27.0); Calcium 8.7 mg/dL (8.7-10.3); Carbon Dioxide 15.6 mmol/L (21.6-31.8); Chloride 106 mmol/L (96-109); Globulin 2.8 g/dL (1.6-3.3); Glucose 140 mg/dL (70-110); Potassium 4.3 mmol/L (3.5-5.5); Sodium 142 mmol/L (135-145); Total Bilirubin 0.3 mg/dL (0.3-1.2)
== END | disposition home or self-care (01) ==
LOC: LABWHC1 06:48
PROVIDERS: ATTEND Internal Medicine Endocrinology, Diabetes & Metabolism
DX: D35.00 Benign neoplasm of unspecified adrenal gland (principal)
CPT/HCPCS: 36415; 80053; 82024; 82088; 82533; 84244

== ENCOUNTER → 2024-04-13 | Outpatient (CLI) | payer MEDICARE ==
--- NOTE | 2024-04-14 17:26 | MM ---
Reason for Exam: Screening (asymptomatic). Last mammogram was performed 2 year(s) and 0 month(s) ago. Patient History: Menarche at age 13. First Full-Term at age 25. Left ovary removed at age 45. Right ovary removed at age 45. Hysterectomy at age 45. Postmenopausal. 09/2012, Reduction. Risk Values: Claudia 5 year model risk: 1.7%. NCI Lifetime model risk: 6.3%. Prior Study Comparison: 02/05/2011 Bilateral Screening Mammogram, [facility]. 07/12/2014 Bilateral Screening Mammogram, [facility]. 04/18/2022 Bilateral MG 3D diag mammo w/cad [place], [facility]. Tissue Density: The breasts are almost entirely fatty. Findings: Analyzed By CAD. Benign oil cyst posterior medial left breast redemonstrated. There is no suspicious group of microcalcifications or new suspicious mass in either breast. Overall Assessment: Benign, BI-RAD 2 Management: Screening Mammogram of both breasts in 1 year. . Patient should continue monthly self-breast exams. A clinical breast exam by your physician is recommended on an annual basis. This exam should not preclude additional follow-up of suspicious palpable abnormalities. Note on Claudia scores and lifetime risk: 1. A Claudia score greater than 3% is considered moderate risk. If this is the case, consider specialist referral to assess eligibility for a risk reducing agent. 2. If overall lifetime risk for the development of breast cancer is 20% or higher, the patient may qualify for future screening with alternating mammogram and breast MRI. [facility], , 04/14/2024 5:22 PM. Electronically signed and approved by: Jackelyn Baker M.D. Radiologist
== END | disposition home or self-care (01) ==
LOC: RADMAMWWP 14:23
PROVIDERS: ATTEND Internal Medicine
DX: Z12.31 Encounter for screening mammogram for malignant neoplasm of breast (principal); Z78.0 Asymptomatic menopausal state; Z90.722 Acquired absence of ovaries, bilateral; R92.313 Mammographic fatty tissue density, bilateral breasts
CPT/HCPCS: 77063; 77067

== ENCOUNTER → 2024-04-29 | Outpatient (CLI) | payer MEDICARE ==
[2024-04-29 10:51] LABS: HGB 14.9 g/dL (12.0-15.0); MCH 31.6 pg (27.0-32.0); MCHC 32.4 g/dL (32.0-37.0); MCV 97.5 FL (80.0-97.0); Mean Platelet Volume 10.7 FL (9.5-12.2); NRBC Per 100 WBC 0 X 10*3/uL (0.00-0.01); Platelet Count 261 X 10*3/uL (140-440); RBC 4.72 X 10*6/uL (4.10-5.20); RDW 12.4 % (11.5-14.5); WBC 6.27 X 10*3/uL (4.50-10.00)
[2024-04-29 10:52] LABS: Basophils # (A) 0.04 X 10*3/uL (0.00-0.10); Basophils % (A) 0.6 %; Eosinophils # (A) 0.13 X 10*3/uL (0.04-0.35); Eosinophils % (A) 2.1 %; Lymphocytes # (A) 1.28 X 10*3/uL (0.90-5.00); Lymphocytes % (A) 20.4 %; Monocytes # (A) 0.46 X 10*3/uL (0.20-1.00); Monocytes % (A) 7.3 %; Neutrophils # (A) 4.35 X 10*3/uL (1.80-7.70); Neutrophils % (A) 69.4 %
[2024-04-29 15:36] LABS: ALT 21 U/L (8-44); AST 18 U/L (13-35); Albumin 4.3 g/dL (3.8-4.9); Albumin/Globulin Ratio 1.59 Ratio (1.60-3.17); Alkaline Phosphatase 82 U/L (41-126); BUN/Creat Ratio 16.75 Ratio (12.00-20.00); Blood Urea Nitrogen 13.4 mg/dL (9.0-27.0); Calcium 9.2 mg/dL (8.7-10.3); Carbon Dioxide 24.6 mmol/L (21.6-31.8); Chloride 105 mmol/L (96-109); Chol/HDL Ratio 4.65 Ratio; Globulin 2.7 g/dL (1.6-3.3); Glucose 127 mg/dL (70-110); LDL Cholesterol,Calculated 115.5 mg/dL (0.0-131.0); Potassium 4.8 mmol/L (3.5-5.5); Sodium 142 mmol/L (135-145); Total Bilirubin 0.5 mg/dL (0.3-1.2)
== END | disposition home or self-care (01) ==
LOC: LABWHC1 08:04
PROVIDERS: ATTEND Internal Medicine
DX: Z00.00 Encounter for general adult medical examination without abnormal findings (principal); Z11.59 Encounter for screening for other viral diseases; E55.9 Vitamin D deficiency, unspecified
CPT/HCPCS: 36415; 80053; 80061; 82306; 83036; 84443; 85025; 86803

== ENCOUNTER → 2024-10-19 | Outpatient (CLI) | payer MEDICARE | END | disposition home or self-care (01) | LOC: LABWHC1 07:06 | PROVIDERS: ATTEND Internal Medicine Endocrinology, Diabetes & Metabolism | DX: D35.00 Benign neoplasm of unspecified adrenal gland (principal) | CPT/HCPCS: 36415; 83835 ==